=== PATIENT | female | born 1995 | race Caucasian/White ===

== ENCOUNTER → 2019-06-18 13:58 | Outpatient (CLI) | payer OTHER, SELFPAY ==
[2019-05-13 14:25] VITALS: BMI 32.1
--- NOTE | 2019-06-18 14:02 | US_ITS ---
STUDY: ULTRASOUND BREAST - RIGHT REASON FOR EXAM: Female, 24 years old. Palpable lump in the right breast. TECHNIQUE: Axial and longitudinal images of the RIGHT breast were performed with a high resolution ultrasound transducer. # OF IMAGES: 24 COMPARISON: None. FINDINGS: RIGHT Breast: The palpable abnormality at the 9:00 position of the breast at 2 cm from the nipple, corresponds to a 1.9 cm x 1.3 cm x 1 cm well-defined hypoechoic solid nodule with peripheral vascularity. This most likely represents a fibroadenoma although a tissue diagnosis is recommended. US/Breast Limited Unilateral IMPRESSION: The palpable abnormality corresponds to 1.9 cm x 1.3 cm x 1 cm well-defined hypoechoic solid nodule. A biopsy is recommended for further evaluation. ASSESSMENT CATEGORY: BIRADS Category 4: Suspicious - Biopsy Should Be Considered. A letter regarding these results will be sent to the patient by the facility within 30 days. Electronically Signed: Emory Tolliver, at 13:28 EST , Service support ,
== END ==
PROVIDERS: Family Provider Nurse Practitioner Family; PCP Nurse Practitioner Family; Referring Provider Nurse Practitioner Women's Health; Visit Provider Nurse Practitioner Women's Health
DX: N63.10 Unspecified lump in the right breast, unspecified quadrant (principal)
CPT/HCPCS: 76642

== ENCOUNTER → 2019-06-23 08:23 | Outpatient (CLI) | payer OTHER, SELFPAY ==
[2019-06-23 15:54] VITALS: BMI 31.1
--- NOTE | 2019-06-23 16:10 | BRBX_PTH ---
PATIENT: TESSA LIANG LOC: [facility] U#:[id number] AGE/SX: 30/F ROOM: RE06/23/[address]: Dr. Sabino Schmidt MD : 1995 BED: DIS: SPEC #: [id number] RECD: 06/24/19 08:23 STATUS: KARLY JOSE #: [id number] ASAEL: 06/23/19 16:[address]: Sabino Schmidt DEPT: SURGICAL PATHOLOGY RECD BY: Emerson Lizama ENTERED: 06/24/19 12:06 SP TYPE: BREAST BX OTHR DR: Camilla Moctezuma, IMMIGRATION CASE MANAGER-C Tissues: Right breast, NOS Procedures: Surgery Specimen Level IV HEADER OPERATION: Right breast biopsy PRE-OP DIAGNOSIS: Abnormal breast ultrasound TISSUE SUBMITTED: Right breast tissue MICROSCOPIC DIAGNOSIS Right breast, core biopsy: Fibroadenoma. Negative for atypia or malignancy. SJ:kathie 06/25/19 COMMENT Correlation with clinical, radiologic findings and appropriate follow up are necessary. MICROSCOPIC DESCRIPTION Slides are reviewed. GROSS DESCRIPTION Received in fixative is one container labeled with the patient's name and designated right breast. The specimen consists of multiple irregular and elongated fragments of rosa-yellow soft tissue that in aggregate measure 1.5 x 1 x 0.1 cm. The specimen is totally submitted in one cassette. / AM:kathie 06/24/19 TC:1 CPT: 85286
== END ==
PROVIDERS: Family Provider Nurse Practitioner Family; PCP Nurse Practitioner Family; Referring Provider Surgery; Visit Provider Surgery
DX: R92.8 Other abnormal and inconclusive findings on diagnostic imaging of breast (principal)
CPT/HCPCS: 88305

== ENCOUNTER → 2021-02-20 08:49 | Outpatient (CLI) | payer OTHER, SELFPAY ==
[2019-06-23 15:54] VITALS: BMI 31.1
[2021-02-20 10:14] LABS: Absolute Lymphocyte Count 1.57 X10^3/uL (0.83-4.51); Absolute Neutrophil Count 3.2 X10^3/uL (2.0-7.7); Basophil# 0.04 X10^3/uL; Basophil% 0.7 % (0-1); Eosinophil# 0.11 X10^3/uL; Hematocrit 40.1 % (37-47); Lymphocyte # 1.57 X10^3/ul (0.83-4.51); Lymphocyte % 28.8 % (19-41); Mean Corp Hgb Conc 32.4 g/dL (32-36); Mean Corpuscular Volume 95.5 fL (81-99); Mean Platelet Vol. 10.3 fl (6.2-12.0); Monocyte# 0.49 X10^3/uL; NRBC Flagged by Analyzer 0 % (0-5); Neutrophil # 3.22 X10^3/uL (2.7-7.7); Platelet Count 320 K/mm3 (150-450); RBC Distribution Width CV 12.2 % (11.6-14.6); White Blood Count 5.5 K/mm3 (4.4-11.0)
[2021-02-20 10:37] LABS: ALB/GLOB Ratio 0.9 RATIO (0.9-2.4); AST(SGOT) 13 U/L (15-37); Alanine Aminotransfer ALT/SGPT 21 U/L (13-56); Albumin, Serum 3.7 g/dL (3.2-5.0); Alkaline Phosphatase 87 U/L (45-117); Anion Gap 5 (5-15); BUN 14 mg/dL (7-18); BUN/Creat Ratio 17.8 RATIO (10-20); Calcium,Total 8.4 mg/dL (8.5-10.1); Chloride 105 mmol/L (98-107); Creatinine, Serum 0.79 mg/dL (0.55-1.02); EST Glomerular Filtration Rate 95 mL/min (>60); Est Glom Filt Rate - Afr Amer 115 mL/min (>60); Globulin 3.9 g/dL (2.2-4.2); Glucose 90 mg/dL (74-106); Protein, Total 7.6 g/dL (6.4-8.2); Sodium Level 136 mmol/L (136-145); T4 Free Direct 0.84 ng/dL (0.76-1.46); Thyroid Stim Hormone (TSH) 1.33 uIU/mL (0.358-3.74)
[2021-02-21 16:35] LABS: Anti-Mitochondrial AB <20.0 Units (0.0-20.0)
[2021-02-22 07:07] LABS: Thyroid Stim Immunoglob <0.10 IU/L (0.00-0.55)
[2021-02-22 10:21] LABS: Thyroid Peroxidase AB 9 IU/mL (0-34)
== END ==
LOC: MFPLAB 08:50
PROVIDERS: PCP Nurse Practitioner Family; Visit Provider Family Medicine
DX: E01.0 Iodine-deficiency related diffuse (endemic) goiter (principal)
CPT/HCPCS: 80053; 83516; 84439; 84443; 84445; 85025; 86376

== ENCOUNTER → 2021-03-01 10:57 | Outpatient (CLI) | payer OTHER, SELFPAY ==
[2019-06-23 15:54] VITALS: BMI 31.1
--- NOTE | 2021-03-01 10:59 | US_ITS ---
STUDY: THYROID ULTRASOUND REASON FOR EXAM: Female, 25 years old. THYROMEGALY TECHNIQUE: Ultrasound evaluation of the thyroid was performed with real-time and static melton-scale imaging. COMPARISON: None. FINDINGS: RIGHT LOBE: The right lobe of the thyroid gland measures 4.2 cm x 1.2 cm x 1.4 cm. There is a homogeneous echotexture. There is a 6 mm x 5 mm x 4 mm complex solid and cystic nodule in the midpole. LEFT LOBE: The left lobe of the thyroid gland measures 3.9 cm x 1.5 cm x 1.3 cm. There is a homogeneous echotexture. There are no demonstrated solid, cystic or complex lesions. ISTHMUS: The isthmus measures 3 mm. The regional lymph nodes are normal. US/Thyroid IMPRESSION: 6 mm x 5 mm x 4 mm complex solid and cystic nodule in the midpole of the right lobe. Correlation with a thyroid scan and uptake is recommended. Electronically Signed: Emory Tolliver MD at 20:52 EDT , Service support ,
== END ==
PROVIDERS: PCP Nurse Practitioner Family; Referring Provider Family Medicine; Visit Provider Family Medicine
DX: E01.0 Iodine-deficiency related diffuse (endemic) goiter (principal); R01.1 Cardiac murmur, unspecified
CPT/HCPCS: 76536

== ENCOUNTER → 2021-03-06 13:55 | Outpatient (CLI) | payer OTHER, SELFPAY ==
[2019-06-23 15:54] VITALS: BMI 31.1
--- NOTE | 2021-03-06 13:59 | ECHOD_ITS ---
Reason For Study: HEART MURMUR Procedure This was a 2D Doppler, Color Flow transthoracic echocardiogram. The exam was of adequate technical quality. Exam performed in department. Left Ventricle Normal LV size. Left ventricular systolic function is normal. The estimated ejection fraction is 65 %. No evidence for diastolic dysfunction. No regional wall motion abnormalities noted. Right Ventricle Normal RV size. Normal systolic function. Atria Normal left atrium. Normal right atrium. No doppler evidence for ASD. Mitral Valve There is no mitral annular calcification. Normal mitral valve. Trivial mitral valve insufficiency. Tricuspid Valve Normal tricuspid valve. Trivial tricuspid valve insufficiency. Right ventricular systolic pressure estimated to be 30 mmHg. Aortic Valve Trisinus/trileaflet aortic valve. Normal aortic valve. Pulmonic Valve The pulmonic valve is not well visualized. Trivial pulmonic valve insufficiency. Great Vessels Normal sized aortic root. Pericardium/Pleural No pericardial effusion. MMode/2D Measurements & Calculations LVIDd: 4.6 cm IVSd: 0.71 cm Ao root diam: 2.6 cm LVIDs: 3.0 cm LVPWd: 0.77 cm RVDd: 3.2 cm FS: 34.5 % LAV(MOD-bp): 38.3 ml LVAd ap4: 33.2 cm2 SV(MOD-sp4): 70.4 ml LAV(MOD-bp) Indexed: 22.0 ml/m2 LVLd ap4: 7.7 cm LAV(MOD-sp2): 34.9 ml EDV(MOD-sp4): 116.7 ml LAV(MOD-sp4): 38.2 ml EDV(sp4-el): 121.5 ml LVAs ap4: 18.8 cm2 LVLs ap4: 6.3 cm ESV(MOD-sp4): 46.3 ml ESV(sp4-el): 47.1 ml EF(MOD-sp4): 60.3 % EF(sp4-el): 61.2 % SV(sp4-el): 74.4 ml LA A4 area: 15.9 cm2 LA dimension(2D): 3.0 cm RA A4 area: 15.1 cm2 Time Measurements MV dec time: 0.24 sec Doppler Measurements & Calculations MV E max chauncey: 102.8 cm/sec Lat Peak E' Chauncey: 16.6 cm/sec Med Peak E' Chauncey: 12.7 cm/sec MV A max chauncey: 96.8 cm/sec E/E' lat: 6.2 E/E' med: 8.1 MV E/A: 1.1 Ao V2 max: 186.2 cm/sec LV V1 max: 157.1 cm/sec PA V2 max: 149.9 cm/sec Ao max P.9 mmHg LV V1 max P.9 mmHg PI end-d chauncey: 96.2 cm/sec TR max chauncey: 258.4 cm/sec TR max P.7 mmHg ECHO/Echo Complete Interpretation Summary Left ventricular systolic function is normal. The estimated ejection fraction is 65 %. Trivial mitral valve insufficiency. Trivial tricuspid valve insufficiency. Trivial pulmonic valve insufficiency. Right ventricular systolic pressure estimated to be 30 mmHg. No evidence for diastolic dysfunction. Ordering Physician: John Olmstead Referring Physician: John Olmstead Performed By: Josee Menendez RDCS
== END ==
PROVIDERS: PCP Family Medicine; Referring Provider Family Medicine; Visit Provider Family Medicine
DX: R01.1 Cardiac murmur, unspecified (principal)
CPT/HCPCS: 93306